=== PATIENT | female | born 1995 | race Caucasian/White ===

== ENCOUNTER 2017-07-24 16:56 | Inpatient (IN) | payer BC, OTHER ==
[2017-07-24] MEDS ORDERED: Misoprostol 200 MCG Tab PO PRN (17:49)
[2017-07-24] MEDS ORDERED: Lidocaine 1% 50 ML MDV INJECT PRN (17:49)
[2017-07-24] MEDS ORDERED: Sodium Chloride 0.9% 10 ML Syringe FLUSH PRN (17:49)
[2017-07-24] MEDS ORDERED: Tranexamic Acid 1,000 MG in Sodium Chloride 0.9% 100 ML IV PRN (17:49)
[2017-07-24] MEDS ORDERED: Methylergonovine 0.2 MG/1 ML Amp IM PRN (17:49)
[2017-07-24] MEDS ORDERED: Water For Irrigation,Sterile 1,000 ML Container IRR PRN (17:49)
[2017-07-24] MEDS ORDERED: Butorphanol 1 MG/ML SDV IVPUSH PRN (17:49)
[2017-07-24] MEDS ORDERED: Carboprost Tromethamine 250 MCG/1 ML Amp IM PRN (17:49)
[2017-07-24] MEDS ORDERED: Sodium Chloride 0.9% 2.5 ML Syringe FLUSH PRN (17:49)
[2017-07-24] MEDS ORDERED: Terbutaline 1 MG/ML SDV SUBCUT PRN (17:49)
[2017-07-24] MEDS ORDERED: Misoprostol 25 MCG (1/4 of 100 MCG) Tab VAG SCH (18:00)
[2017-07-24] MEDS ORDERED: Oxytocin/0.9 % Sodium Chloride 30 UNIT/500 ML BAG IV SCH ×2 (18:00)
[2017-07-24] MEDS: Misoprostol 25 MCG (1/4 of 100 MCG) Tab VAG PRN ×2 (18:33→22:51)
[2017-07-24] MEDS: Lactated Ringers 1,000 ML IV SCH (18:35)
[2017-07-25] MEDS: Lactated Ringers 1,000 ML IV SCH ×3 (06:07→12:06)
[2017-07-25] MEDS ORDERED: Ondansetron 4 MG/2 ML SDV IVPUSH ONE (09:14)
[2017-07-25] MEDS ORDERED: Ropivacaine 0.2% 2 MG/ML 20 ML SDV ONE (10:11)
--- NOTE | 2017-07-25 10:37 | PCM.PREANE ---
Preanesthetic Assessment - Procedure Proposed Procedure: labor epidural - Anesthesia/Transfusion/Family Hx Anesthesia History: Prior Anesthesia Without Reaction Family History of Anesthesia Reaction: No Transfusion History: No Prior Transfusion(s) - Review of Systems Other: Reports: None - Physical Assessment Height: 5 ft 1 in Weight: 59.874 kg ASA Class: 2 Mental Status: Alert & Oriented x3 Airway Class: Mallampati = 1 Dentition: Reports: Normal Dentition Thyro-Mental Finger Breadths: 3 Mouth Opening Finger Breadths: 3 ROM/Head Extension: Full - Lab Values: Laboratory Last Values WBC 12.47 K/uL (4.0-11.0) H 07/24/17 18: RBC 3.89 M/uL (4.30-5.90) L 07/24/17 18:22 Hgb 12.6 g/dL (12.0-16.0) 07/24/17 18: Hct 35.6 % (36.0-46.0) L 07/24/17 18: MCV 91.5 fL (80.0-98.0) 07/24/17 18: MCH 32.4 pg (27.0-32.0) H 07/24/17 18: MCHC 35.4 g/dL (31.0-37.0) 07/24/17 18: RDW Std Deviation 46.8 fl (28.0-62.0) 07/24/17 18: RDW Coeff of Kristy 14 % (11.0-15.0) 07/24/17 18: Plt Count 215 K/uL (150-400) 07/24/17 18: MPV 9.90 fL (7.40-12.00) 07/24/17 18: Nucleated RBC % 0.0 /100WBC 07/24/17 18:22 Nucleated RBCs # 0 K/uL 07/24/17 18:22 POC Glucose 82 mg/dL (60-110) 07/25/17 09:03 Blood Type O POSITIVE 07/24/17 18: Antibody Screen NEGATIVE 07/24/17 18:22 - Allergies Allergies/Adverse Reactions: Allergies Allergy/AdvReac Type Severity Reaction Status Date / Time No Known Allergies Allergy Verified 11/05/13 10:12 - Blood Blood Available: Yes Product(s) Available: PRBC - Acknowledgements Anesthesia Type Planned: Epidural Pt an Appropriate Candidate for the Planned Anesthesia: Yes Alternatives and Risks of Anesthesia Discussed w Pt/Guardian: Yes Pt/Guardian Understands and Agrees with Anesthesia Plan: Yes PreAnesthesia Questionnaire 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: - Infectious Disease History Infectious Disease History: Reports: Herpes - Past Surgical History HEENT Surgical History: Reports: Adenoidectomy, Tonsillectomy, Other (See Below) Other HEENT Surgeries/Procedures: [place] teeth extraction - SUBSTANCE USE Smoking Status *Q: Never Smoker Tobacco Use Within Last Twelve Months: No Second Hand Smoke Exposure: No Recreational Drug Use History: No - CURRENT (IN HOUSE) MEDS Current Meds: Current Medications Butorphanol Tartrate (Stadol) 1 mg IVPUSH Q1H PRN PRN Reason: Pain Last Admin: 07/25/17 03:29 Dose: 1 mg Carboprost Tromethamine (Hemabate Ds) 250 mcg IM ASDIRECTED PRN PRN Reason: Post Hemorrhage Lactated Ringer's (Ringers, Lactated) 1,000 mls @ 150 mls/hr IV ASDIRECTED NAHOMY Last Admin: 07/25/17 06:07 Dose: 150 mls/hr Oxytocin/Sodium Chloride (Oxytocin 30 Unit/500 Ml-Ns) 30 unit in 500 mls @ 2 mls/hr IV TITRATE NAHOMY; 2 MUNITS/MIN PRN Reason: Protocol Last Titration: 07/25/17 09:53 Dose: 8 munits/min, 8 mls/hr Oxytocin/Sodium Chloride (Oxytocin 30 Unit/500 Ml-Ns) 30 unit in 500 mls @ 500 mls/hr IV .ONCE NAHOMY Tranexamic Acid 1,000 mg/ (Sodium Chloride) 110 mls @ 660 mls/hr IV ONETIME PRN PRN Reason: Bleeding Lidocaine HCl (Xylocaine 1%) 50 ml INJECT .ONCE PRN PRN Reason: Laceration repair Methylergonovine Maleate (Methergine) 0.2 mg IM ASDIRECTED PRN PRN Reason: Post Hemorrhage Misoprostol (Cytotec) 25 mcg VAG Q4H PRN PRN Reason: Cervical Ripening Last Admin: 07/24/17 22:51 Dose: 25 mcg Misoprostol (Cytotec) 200 mcg PO .ONCE PRN PRN Reason: Post Hemorrhage Sodium Chloride (Saline Flush) 10 ml FLUSH ASDIRECTED PRN PRN Reason: Keep Vein Open Sodium Chloride (Saline Flush) 2.5 ml FLUSH ASDIRECTED PRN PRN Reason: Keep Vein Open Sterile Water (Sterile Water For Irrigation) 1,000 ml IRR ASDIRECTED PRN PRN Reason: delivery Terbutaline Sulfate (Brethine) 0.25 mg SUBCUT ASDIRECTED PRN PRN Reason: Tacysystole Discontinued Medications Fentanyl/Bupivacaine HCl (Wryvpjzp-Eaqrg-Kq 2 Mcg/Ml-0.125%) Confirm Administered Dose 100 mls @ as directed EP .STK-MED ONE Stop: 07/25/17 10:12 Ondansetron HCl (Zofran) 4 mg IVPUSH ONETIME ONE Stop: 07/25/17 09:15 Ropivacaine (Naropin 0.2%) Confirm Administered Dose 20 ml .ROUTE .STK-MED ONE Stop: 07/25/17 10:12
[2017-07-25] MEDS ORDERED: Benzocaine/Menthol 20%-0.5% Spray 78 GM Cannister TOP PRN (16:08)
[2017-07-25] MEDS ORDERED: Aluminum Hydroxide/Magnesium Hydroxide/Simethicone Susp 30 ML Cup PO PRN (16:08)
[2017-07-25] MEDS ORDERED: oxyCODONE 5 MG Tab PO PRN (16:08)
[2017-07-25] MEDS ORDERED: Acetaminophen 500 MG Tab PO PRN ×2 (16:08)
[2017-07-25] MEDS ORDERED: Witch Hazel Medicated Pads 40/Jar TOP PRN (16:08)
[2017-07-25] MEDS ORDERED: Ibuprofen 400 MG Tab PO PRN (16:08)
[2017-07-25] MEDS ORDERED: Lanolin 100% Cream 7 GM Tube TOP PRN (16:08)
[2017-07-25] MEDS ORDERED: Bisacodyl 10 MG Supp RECTAL PRN (16:08)
[2017-07-25] MEDS ORDERED: Docusate Sodium 100 MG Cap PO PRN (16:08)
--- NOTE | 2017-07-25 17:57 | PCM48HPAN ---
Post Anesthesia Note - EVALUATION WITHIN 48HRS OF ANESTHETIC Vital Signs in Normal Range: Yes Patient Participated in Evaluation: Yes Respiratory Function Stable: Yes Airway Patent: Yes Cardiovascular Function Stable: Yes Hydration Status Stable: Yes Pain Control Satisfactory: Yes Nausea and Vomiting Control Satisfactory: Yes Mental Status Recovered: Yes
[2017-07-25] MEDS: Ibuprofen 800 MG Tab PO PRN (21:12)
--- NOTE | 2017-07-25 22:30 | OR ---
SURGEON: Montserrat Howard M.D. DATE OF PROCEDURE: 07/25/2017 PREOPERATIVE DIAGNOSES: 1. 39 and 3 weeks' intrauterine . 2. Induction of labor for polyhydramnios and gestational diabetes. POSTOPERATIVE DIAGNOSES: 1. 39 and 3 weeks' intrauterine . 2. Induction of labor for polyhydramnios and gestational diabetes. PROCEDURE: Spontaneous vaginal delivery, intact perineum. ANESTHESIA: Epidural. ESTIMATED BLOOD LOSS: 300 mL. FINDINGS: Term female, scores 9 at 1 minute, 10 at 5 minute, weight of 3600 g, spontaneous delivery, intact placenta, 3-vessel cord. DISPOSITION: to nursery. Mom in LDRP, stable. PROCEDURE IN DETAIL: Marilee is a 21-year-old G2, P1-0-0-1, at 39 and 3 weeks' gestational age, who was admitted on the evening of 07/24/2017 for Cytotec induction. She received 2 doses of Cytotec, started having regular contractions. The following morning, she was found to be 2 to 3 cm, 70% effaced, +2 station. She underwent amniotomy shortly before 9:00 a.m., a large amount of clear fluid was returned. The head settled nicely into the pelvis. Continued with Pitocin induction. heart tones remained in the 120s with variability. The patient became increasingly uncomfortable through the morning hours. Underwent epidural anesthesia at approximately 11:00 a.m. Shortly before 1:00 a.m., she was found to be 5 cm, 90% effaced, +2 station. Within approximately 30 minutes, progressed to 9 cm. heart tones remained in the 120s with variability. She progressed to complete. Over the next approximately an hour, and once the head was at a 0 to +1 station, began pushing efforts, pushed readily. I was called for delivery. Upon my arrival, which was within 6 minutes of being called. The had delivered precipitously for nursing staff. The infant was crying vigorously on mother's chest. Cord was clamped x2 and cut. Light suprapubic pressure was applied while the placenta was delivered spontaneously intact. Vigorous fundal uterine massage was then applied while 30 units of Pitocin was delivered in 500 mL IV fluid. Upon inspection of cervix, vaginal sidewalls, and perineum, these were found to be intact. Uterus remained firm. Hemostasis evident. Sponge count was correct. The patient remained in LDRP in stable condition. Her glucoses have been normal during the labor process. in nursery. FRANCOIS / YODIT /[id number]
--- NOTE | 2017-07-26 06:28 | PCM.PNPP ---
- General Info Date of Service: 07/26/17 Functional Status: Reports: Pain Controlled, Tolerating Diet, Ambulating, Urinating - Review of Systems General: Denies: Fever, Weakness Pulmonary: Denies: Shortness of Breath Cardiovascular: Denies: Chest Pain, Palpitations, Lightheadedness Gastrointestinal: Reports: Flatus. Denies: Abdominal Pain, Nausea, Vomiting Genitourinary: Denies: Flank Pain Neurological: Reports: No Symptoms Psychiatric: Reports: No Symptoms - General Info Date of Service: 07/26/17 - Patient Data Vital Signs - Most Recent: Last Vital Signs Temp 36.4 C 07/26/17 04:58 Pulse 70 07/26/17 04:58 Resp 16 07/26/17 04:58 BP 135/86 07/26/17 04:58 Pulse Ox 96 07/26/17 04:58 Weight - Most Recent: 59.874 kg Lab Results - Last 24 Hours: Laboratory Results - last 24 hr 07/25/17 07/25/17 07/25/17 Range/Units 06:41 09:03 12:02 POC Glucose 64 82 62 (60-110) mg/dL Med Orders - Current: Current Medications Acetaminophen (Tylenol Extra Strength) 500 mg PO Q4H PRN PRN Reason: Pain Acetaminophen (Tylenol Extra Strength) 1,000 mg PO Q4H PRN PRN Reason: Pain Last Admin: 07/26/17 04:52 Dose: 1,000 mg Al Hydroxide/Mg Hydroxide (Mag-Al Plus) 30 ml PO Q8H PRN PRN Reason: Heartburn Benzocaine/Menthol (Dermoplast Pain Relief 20%-0.5% Wood) 78 gm TOP ASDIRECTED PRN PRN Reason: Perineal Comfort Measure Bisacodyl (Dulcolax) 10 mg RECTAL .ONCE PRN PRN Reason: Constipation Carboprost Tromethamine (Hemabate Ds) 250 mcg IM ASDIRECTED PRN PRN Reason: Post Hemorrhage Docusate Sodium (Colace) 100 mg PO BID PRN PRN Reason: Constipation Emollient Ointment (Lansinoh Hpa) 0 gm TOP ASDIRECTED PRN PRN Reason: Sore Nipples Last Admin: 07/25/17 21:13 Dose: 1 tube Lactated Ringer's (Ringers, Lactated) 1,000 mls @ 150 mls/hr IV ASDIRECTED NAHOMY Last Admin: 07/25/17 12:06 Dose: 150 mls/hr Oxytocin/Sodium Chloride (Oxytocin 30 Unit/500 Ml-Ns) 30 unit in 500 mls @ 2 mls/hr IV TITRATE NAHOMY; 2 MUNITS/MIN PRN Reason: Protocol Last Titration: 07/25/17 17:10 Dose: 0 munits/min, 0 mls/hr Oxytocin/Sodium Chloride (Oxytocin 30 Unit/500 Ml-Ns) 30 unit in 500 mls @ 500 mls/hr IV .ONCE NAHOMY Tranexamic Acid 1,000 mg/ (Sodium Chloride) 110 mls @ 660 mls/hr IV ONETIME PRN PRN Reason: Bleeding Ibuprofen (Motrin) 400 mg PO Q4H PRN PRN Reason: Pain Ibuprofen (Motrin) 800 mg PO Q6H PRN PRN Reason: Pain Last Admin: 07/25/17 21:12 Dose: 800 mg Lidocaine HCl (Xylocaine 1%) 50 ml INJECT .ONCE PRN PRN Reason: Laceration repair Methylergonovine Maleate (Methergine) 0.2 mg IM ASDIRECTED PRN PRN Reason: Post Hemorrhage Misoprostol (Cytotec) 200 mcg PO .ONCE PRN PRN Reason: Post Hemorrhage Oxycodone HCl (Oxycodone) 5 mg PO Q2H PRN PRN Reason: Pain Sodium Chloride (Saline Flush) 10 ml FLUSH ASDIRECTED PRN PRN Reason: Keep Vein Open Sodium Chloride (Saline Flush) 2.5 ml FLUSH ASDIRECTED PRN PRN Reason: Keep Vein Open Witch Keisha (Tucks) 1 pad TOP ASDIRECTED PRN PRN Reason: comfort care Discontinued Medications Butorphanol Tartrate (Stadol) 1 mg IVPUSH Q1H PRN PRN Reason: Pain Last Admin: 07/25/17 03:29 Dose: 1 mg Fentanyl/Bupivacaine HCl (Cozxqhwc-Tvlrf-Mh 2 Mcg/Ml-0.125%) Confirm Administered Dose 100 mls @ as directed EP .STK-MED ONE Stop: 07/25/17 10:12 Last Admin: 07/25/17 19:13 Dose: Not Given Misoprostol (Cytotec) 25 mcg VAG Q4H PRN PRN Reason: Cervical Ripening Last Admin: 07/24/17 22:51 Dose: 25 mcg Ondansetron HCl (Zofran) 4 mg IVPUSH ONETIME ONE Stop: 07/25/17 09:15 Last Admin: 07/25/17 09:31 Dose: 4 mg Ropivacaine (Naropin 0.2%) Confirm Administered Dose 20 ml .ROUTE .STK-MED ONE Stop: 07/25/17 10:12 Last Admin: 07/25/17 19:13 Dose: Not Given Sterile Water (Sterile Water For Irrigation) 1,000 ml IRR ASDIRECTED PRN PRN Reason: delivery Last Admin: 07/25/17 19:42 Dose: 1,000 ml Terbutaline Sulfate (Brethine) 0.25 mg SUBCUT ASDIRECTED PRN PRN Reason: Tacysystole - Interaction Disposition, : in Room with Family Feeding: Breastfed ; Nursed Well Support Person: - Recovery Exam Fundal Tone: Firm Fundal Level: 1 Fingerbreadths Above Umbilicus Fundal Placement: Midline Lochia Amount: Scant Lochia Color: Rubra/Red Perineum Description: Intact, Minimal Bruising/Swelling Episiotomy/Laceration: None Bladder Status: Voiding Urinary Elimination: Voided - Exam General: Alert, Oriented Lungs: Normal Respiratory Effort Cardiovascular: Regular Rate, Regular Rhythm GI/Abdominal Exam: Normal Bowel Sounds, Soft Extremities: No: Jaron's Sign Skin: Warm, Dry, Intact Psy/Mental Status: Alert, Normal Affect - Problem List & Annotations (1) Vaginal delivery SNOMED Code(s): 078227138 Code(s): O80 - ENCOUNTER FOR FULL-TERM UNCOMPLICATED DELIVERY Status: Acute Current Visit: Yes - Problem List Review Problem List Initiated/Reviewed/Updated: Yes - My Orders Last 24 Hours: My Active Orders 07/25/17 16:08 Patient Status [ADT] Routine May Shower [RC] ASDIRECTED Up ad Ania [RC] ASDIRECTED Vital Signs [RC] PER UNIT ROUTINE Acetaminophen [Tylenol Extra Strength] 1,000 mg PO Q4H PRN Acetaminophen [Tylenol Extra Strength] 500 mg PO Q4H PRN Alum Hydrox/Mag Hydrox/Simeth [Mag-Al Plus] 30 ml PO Q8H PRN Benzocaine/Menthol [Dermoplast Pain Relief 20%-0.5% Wood] 78 gm TOP ASDIRECTED PRN Bisacodyl [Dulcolax] 10 mg RECTAL .ONCE PRN Docusate Sodium [Colace] 100 mg PO BID PRN Ibuprofen [Motrin] 400 mg PO Q4H PRN Ibuprofen [Motrin] 800 mg PO Q6H PRN Lanolin [Lansinoh HPA] See Dose Instructions TOP ASDIRECTED PRN Witch Keisha [Tucks] 1 pad TOP ASDIRECTED PRN oxyCODONE 5 mg PO Q2H PRN Assess Lochia [WOMSER] Per Unit Routine Assess Uterine Involution [WOMSER] Per Unit Routine Peripheral IV Discontinue [OM.PC] Routine 07/25/17 16:09 Ice Therapy [OM.PC] Per Unit Routine Perineal Care [OM.PC] Per Unit Routine Sitz Bath [OM.PC] Per Unit Routine 07/25/17 Dinner Regular Diet [DIET] 07/26/17 04:59 GLUCOSE FASTING [CHEM] Routine 07/26/17 05:11 HEMOGLOBIN/HEMATOCRIT,HH [HEME] Routine 07/26/17 06:24 Ready for Discharge [RC] PER UNIT ROUTINE - Assessment Assessment:: PPD 1 status post GDM - Plan Plan:: Patient is feeling well and would like to go home later today. VS are stable. Discharge to home today. Discharge instructions reviewed. Follow up at [facility] 6 weeks, Needs 75 gm GTT at PP visit. Infection and bleeding warnings reviewed.
[2017-07-26] MEDS: Ibuprofen 800 MG Tab PO PRN (09:32)
== END 2017-07-26 18:00 | disposition home or self-care (01) | DRG 560 ==
LOC: MW.OBCHECK 16:56 → MW.OB 17:00 → MW.OBCHECK 17:53 → OBSVTOIN 07-25 15:52 → MW.OB 07-25 22:27
PROVIDERS: ADMIT Obstetrics & Gynecology; ATTEND Obstetrics & Gynecology
PROC: 10E0XZZ Delivery of Products of Conception, External Approach (ICD-10-PCS; principal; 2017-07-25)
PROC: 3E0P7VZ Introduction of Hormone into Female Reproductive, Via Natural or Artificial Opening (ICD-10-PCS; 2017-07-25)
PROC: 3E033VJ Introduction of Other Hormone into Peripheral Vein, Percutaneous Approach (ICD-10-PCS; 2017-07-25)
PROC: 10907ZC Drainage of Amniotic Fluid, Therapeutic from Products of Conception, Via Natural or Artificial Opening (ICD-10-PCS; 2017-07-25)
DX: O40.3XX0 Polyhydramnios, third trimester, not applicable or unspecified (principal); O24.429 Gestational diabetes mellitus in childbirth, unspecified control; Z3A.39 39 weeks gestation of pregnancy; Z37.0 Single live birth
CPT/HCPCS: 36415; 51702; 59025; 59409; 82947; 82962; 85014; 85018; 85027; 86850; 86900; 86901; A9270-GY; J0595; J2405; J2590; J7120

== ENCOUNTER 2024-06-16 21:04 | Emergency (ER) | payer BC ==
[2024-06-16 21:41] LABS: APPEARANCE,URINE CLOUDY; BILIRUBIN,URINE NEGATIVE (NEGATIVE); GLUCOSE,URINE NEGATIVE (NEGATIVE); KETONES,URINE NEGATIVE (NEGATIVE); LEUKOCYTE ESTERASE,URINE LARGE (NEGATIVE); NITRITE,URINE NEGATIVE (NEGATIVE); OCCULT BLOOD,URINE LARGE (NEGATIVE); PH,URINE 6.5 (5.0-8.0); PROTEIN,URINE TRACE mg/dL (NEGATIVE); UROBILINOGEN,URINE 0.2 EU/dL (<2.0)
[2024-06-16 21:46] LABS: COLOR,URINE YELLOW
[2024-06-16 22:03] LABS: BACTERIA,URINE 3+ (NEGATIVE); EPITHELIAL CELLS,URINE MODERATE (NONE-FEW); RBC,URINE TOO NUMEROUS TO CT (0-2/HPF); WBC,URINE TOO NUMEROUS TO CT (0-5/HPF)
[2024-06-16] MEDS: Cefdinir 300 MG Cap PO ONE (22:19)
== END 2024-06-16 22:25 | disposition home or self-care (01) ==
LOC: MW.ED 21:04
DX: N39.0 Urinary tract infection, site not specified (principal); Z79.899 Other long term (current) drug therapy; Z75.8 Other problems related to medical facilities and other health care
CPT/HCPCS: 81001; 81025; 87086; 99284; A9270; 99283